=== PATIENT | female | born 1995 | race Caucasian/White ===

== ENCOUNTER 2017-07-26 11:17 | Emergency (ER) | payer OTHER ==
--- NOTE | 2017-07-26 12:57 | EDPHY ---
HPI/HX/ROS/PE/MDM Narrative: CHIEF COMPLAINT: Pelvic bleeding and cramping HPI: The patient is a 22 y/o female with an IUD (placed in April 2016) complaining of pelvic bleeding and cramping onset 5 days ago. She initially had cramping followed by bright red blood with clots, which was more blood than her usual menstrual cycle. The cramping is currently in her lower abdomen and feels like a weight. She does not normally have cramps associated with her menstrual cycle. Her last menstrual cycle was 2 weeks ago. Denies history of STI, bleeding disorders, or surgery. Denies urinary complaints, abnormal discharge, fever. Denies chest pain, shortness of breath, numbness, paresthesias. Followed by a book sewing machine operator in [place] REVIEW OF SYSTEMS: Aside from elements discussed in the HPI, a comprehensive 10-point review of systems was reviewed and is negative. PMH: Denies SOCIAL HISTORY: Mother at bedside, student at [employer], originally from [place], [facility] PHYSICAL EXAM: General: Patient is alert, in no acute distress. ENT: Eyes are normal to inspection. ENT inspection normal. Neck: Normal inspection. Full range of motion. Respiratory: No respiratory distress. Breath sounds normal bilaterally. Cardiovascular: Regular rate and rhythm. Strong peripheral pulses. Normal cap refill. Abdomen: The abdomen is nontender to palpation. There are no peritoneal signs. There are normal bowel sounds. Back: Normal to inspection. No tenderness to palpation. Skin: Normal color. No rash. Warm and dry. Extremities: Normal appearance. Full range of motion. Neuro: Oriented x3. Normal motor function. Normal sensory function. ED Course: 1419: Spoke with Dr. Quiles, radiologist, regarding patient's Pelvic US. The patient's IUD is in proper placement and there is no clear etiology for the vaginal bleeding or cramping. Patient's labs are also normal. 1422: Reassessed patient and discussed imaging findings. I have advised her to follow up with her book sewing machine operator tomorrow. Return precautions provided; patient is comfortable with this plan. MDM: This is a young healthy female with pelvic cramping and vaginal bleeding. Pelvic US is negative, showing no signs of IUD migration, uterine perforation, ovarian cyst or other pathology. test is negative - no signs of ectopic . The patient was offered a pelvic exam but declined, as she will follow-up with her [employer] tomorrow. I considered other pathology such as appendicitis, but there is no objective evidence of this and I think this diagnosis is unlikely. - Data Points Imaging: Discussed imaging studies w/ yardage caller Radiologist Laboratory Results: Laboratory Results 07/26/17 13:35 07/26/17 13:35 07/26/1718 07/26/17 13:35 13:35 13:35 WBC 8.29 10^3/uL 10^3/uL (3.80-9.50) RBC 4.19 10^6/uL 10^6/uL (4.18-5.33) Hgb 13.6 g/dL g/dL (12.6-16.3) Hct 39.7 % % (38.0-47.0) MCV 94.7 fL fL (81.5-99.8) MCH 32.5 pg pg (27.9-34.1) MCHC 34.3 g/dL g/dL (32.4-36.7) RDW 12.7 % % (11.5-15.2) Plt Count 208 10^3/uL 10^3/uL (150-400) MPV 10.9 fL fL (8.7-11.7) Neut % (Auto) 62.8 % % (39.3-74.2) Lymph % (Auto) 28.6 % % (15.0-45.0) [place] % (Auto) 6.2 % % (4.5-13.0) Eos % (Auto) 2.1 % % (0.6-7.6) Baso % (Auto) 0.2 % L % (0.3-1.7) Nucleat RBC Rel Count 0.0 % % (0.0-0.2) Absolute Neuts (auto) 5.21 10^3/uL 10^3/uL (1.70-6.50) Absolute Lymphs (auto) 2.37 10^3/uL 10^3/uL (1.00-3.00) Absolute Monos (auto) 0.51 10^3/uL 10^3/uL (0.30-0.80) Absolute Eos (auto) 0.17 10^3/uL 10^3/uL (0.03-0.40) Absolute Basos (auto) 0.02 10^3/uL 10^3/uL (0.02-0.10) Absolute Nucleated RBC 0.00 10^3/uL 10^3/uL (0-0.01) Immature Gran % 0.1 % % (0.0-1.1) Immature Gran # 0.01 10^3/uL 10^3/uL (0.00-0.10) Sodium 143 mEq/L mEq/L (135-145) Potassium 4.4 mEq/L mEq/L (3.5-5.2) Chloride 108 mEq/L mEq/L (97-110) Carbon Dioxide 25 mEq/l mEq/l (22-31) Anion Gap 10 mEq/L mEq/L (8-16) BUN 12 mg/dL mg/dL (7-23) Creatinine 0.7 mg/dL mg/dL (0.6-1.0) Estimated GFR > 60 Glucose 80 mg/dL mg/dL (70-100) Calcium 9.3 mg/dL mg/dL (8.5-10.4) Beta HCG, Qual NEGATIVE Urine Color Urine Appearance Urine pH Ur Specific [place] Urine Protein Urine Ketones Urine Blood Urine Nitrate Urine Bilirubin Urine Urobilinogen Ur Leukocyte Esterase Urine RBC Urine WBC Ur Epithelial Cells Urine Mucus Urine Glucose Urine Test 07/26/17 07/26/17 11:20 11:20 WBC RBC Hgb Hct MCV MCH MCHC RDW Plt Count MPV Neut % (Auto) Lymph % (Auto) [place] % (Auto) Eos % (Auto) Baso % (Auto) Nucleat RBC Rel Count Absolute Neuts (auto) Absolute Lymphs (auto) Absolute Monos (auto) Absolute Eos (auto) Absolute Basos (auto) Absolute Nucleated RBC Immature Gran % Immature Gran # Sodium Potassium Chloride Carbon Dioxide Anion Gap BUN Creatinine Estimated GFR Glucose Calcium Beta HCG, Qual Urine Color YELLOW Urine Appearance CLEAR Urine pH 5.0 (5.0-7.5) Ur Specific [place] 1.017 (1.002-1.030) Urine Protein NEGATIVE (NEGATIVE) Urine Ketones NEGATIVE (NEGATIVE) Urine Blood 3+ H (NEGATIVE) Urine Nitrate NEGATIVE (NEGATIVE) Urine Bilirubin NEGATIVE (NEGATIVE) Urine Urobilinogen NEGATIVE EU EU (0.2-1.0) Ur Leukocyte Esterase NEGATIVE (NEGATIVE) Urine RBC 1-3 /hpf /hpf (0-3) Urine WBC 1-3 /hpf /hpf (0-3) Ur Epithelial Cells TRACE /lpf /lpf (NONE-1+) Urine Mucus TRACE /lpf /lpf (NONE-1+) Urine Glucose NEGATIVE (NEGATIVE) Urine Test NEGATIVE Medications Given: Discontinued Medications Sodium Chloride (Ns) 1,000 mls @ 0 mls/hr IV EDNOW ONE; Wide Open PRN Reason: Protocol Stop: 07/26/17 13:17 Last Admin: 07/26/17 13:41 Dose: 1,000 mls General Time Seen by Provider: 07/26/17 12:56 Initial Vital Signs: Initial Vital Signs Temperature (C) 36.6 C 07/26/17 11:22 Heart Rate 85 07/26/17 11:22 Respiratory Rate 17 07/26/17 11:22 Blood Pressure 107/69 07/26/17 11:22 O2 Sat (%) 99 07/26/17 11:22 O2 Delivery Mode Room Air Allergies/Adverse Reactions: No Known Allergies Allergy (Unverified 07/26/17 11:21) Home Medications: Medication Instructions Recorded Lexapro 07/26/17 Departure - Departure Disposition: Left Without Being Seen Clinical Impression: Vaginal bleeding Condition: Good Instructions: Dysfunctional Uterine Bleeding (ED) Additional Instructions: Your IUD is in the correct place. Follow up with your book sewing machine operator tomorrow. If you cannot see your book sewing machine operator, you have been referred to Dr. Olvera. Return to the Emergency Department for fever, worsening pain, pelvic pain or failure to improve within 72 hours. Referrals: [facility] [Other] - As per Instructions Jonathan Olvera MD [Medical Doctor] - As per Instructions Stand Alone Forms: School Excuse Report Scribed for: Ayan Ruby Report Scribed by: Lennie Spann Date of Report: 07/26/17 Time of Report: 12:57 Physician Review and Approval Statement: Portions of this note were transcribed by an ED scribe. I personally performed the history, physical exam, and medical decision making; and confirm the accuracy of the information in the transcribed note.
[2017-07-26] MEDS ORDERED: NS 1,000 ML IV ONE (13:16)
[2017-07-26 13:43] LABS: PLATELET COUNT 208 10^3/uL (150-400)
[2017-07-26] MEDS ORDERED: IBUPROFEN 600 MG TAB PO ONE (14:49)
[2017-07-26 14:56] VITALS: BP 111/69
== END 2017-07-26 14:58 | disposition left against medical advice (07) ==
DX: N93.9 Abnormal uterine and vaginal bleeding, unspecified (principal); E86.9 Volume depletion, unspecified

== ENCOUNTER 2018-02-05 02:31 | Emergency (ER) | payer OTHER ==
[2018-02-05] MEDS ORDERED: NS 1,000 ML IV ONE ×2 (02:58→03:48)
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
[2018-02-05 05:22] VITALS: BP 98/54
== END 2018-02-05 05:45 | disposition home or self-care (01) ==
LOC: EDUNIT#
DX: F10.920 Alcohol use, unspecified with intoxication, uncomplicated (principal); E86.9 Volume depletion, unspecified
CPT/HCPCS: 80305; G0480